=== PATIENT | female | born 1930 | race Caucasian/White ===

== ENCOUNTER 2018-02-13 04:50 | Emergency (ER) | payer MEDICARE, MEDICAID ==
[~2018-02-13] VITALS: Ht 160 cm; Wt 61.0 kg
[2018-02-13] MEDS ORDERED: GABA-529 PO (06:26)
[2018-02-13] MEDS ORDERED: APIX5TAB PO (06:26)
[2018-02-13] MEDS ORDERED: VENL-193 PO (06:26)
[2018-02-13] MEDS ORDERED: AMIO200T44 PO (06:26)
[2018-02-13] MEDS ORDERED: MEMA10TA11 PO (06:26)
[2018-02-13] MEDS ORDERED: [UNRECOGNIZED DRUG - CODE] PO (06:26)
[2018-02-13] MEDS ORDERED: DONE10TA8 PO (06:26)
[2018-02-13] MEDS ORDERED: LEVO25TA9 PO (06:26)
[2018-02-13] MEDS ORDERED: PRAV20TA4 PO (06:26)
[2018-02-13] MEDS ORDERED: SACC250C3 PO (06:26)
[2018-02-13 06:34] LABS: AMPHET/METH SCREEN,URINE NEGATIVE (NEGATIVE); BARBITURATE SCREEN, URINE NEGATIVE (NEGATIVE); BENZODIAZEPINES SCREEN,URINE NEGATIVE (NEGATIVE); CANNABINOID SCREEN,URINE NEGATIVE (NEGATIVE); COCAINE SCREEN,URINE NEGATIVE (NEGATIVE); METHADONE SCREEN, URINE NEGATIVE (NEGATIVE); OPIATE SCREEN,URINE NEGATIVE (NEGATIVE)
[2018-02-13 06:42] LABS: PHENCYCLIDINE SCREEN,URINE NEGATIVE (NEGATIVE)
[2018-02-13 09:31] VITALS: BP 121/62
== END 2018-02-13 10:21 | disposition home or self-care (01) ==
LOC: EMS 04:50
DX: F32.9 Major depressive disorder, single episode, unspecified (principal); E03.9 Hypothyroidism, unspecified; I48.91 Unspecified atrial fibrillation; Z79.899 Other long term (current) drug therapy
CPT/HCPCS: 93005